=== PATIENT | male | born 1945 | race Caucasian/White ===

== ENCOUNTER 2024-11-30 20:30 | Emergency (ER) | payer OTHER ==
[~2024-11-30] VITALS: Ht 175.3 cm; Wt 98.0 kg
[2024-11-30 20:46] VITALS: TEMP 98
[2024-11-30] MEDS ORDERED: AMLO10TA PO (20:49)
--- NOTE | 2024-11-30 20:54 | Physician Documentation ---
History of Present Illness ~ Chief Complaint: Hypertension Stated Complaint: HIGH BP Time Seen by MD: 21:34 HPI 79-year-old male with history of hypertension takes amlodipine 10 mg daily was recently evaluated at his primary care provider's office at the OR when they noted that his blood pressure was elevated in the 160 systolic. His blood pressure cuff that he normally uses to assess his blood pressure at home is almost 20 years old they gave him a new blood pressure cuff in which case he has been checking it twice a day for with his systolic blood pressure being in the 200s twice prior to calling EMS. It was also elevated with EMS 1 time being 160 and the next being in the 120 systolic. Patient is asymptomatic denies dizziness chest pain or shortness of breath. Patient is hesitant to take more medications for blood pressure does not have a follow up appointment at the OR. Medication Reconciliation Allergies: Coded Allergies: No Known Allergies (Unverified , 11/30/24) Scheduled Amlodipine Besylate (Amlodipine Besylate), 1 TABLET PO DAILY, (Reported) Review of Systems All Other Systems at this time: Reviewed and Negative Constitutional: Reports: see HPI Physical Exam Vital Signs: RN Vital Signs have been reviewed: Yes, Temperature: 98.0, Source: Temporal, Heart Rate: 87, Respiratory Rate: 18, BP: 167/92, Pulse Oximetry: 95 Oxygen Flow Rate: 0 General Appearance: alert, WD/WN, no apparent distress Respiratory: lungs clear, normal breath sounds, no respiratory distress Chest: no accessory muscle use, chest non-tender Cardiovascular: normal peripheral pulses, regular rate, rhythm, no edema, no JVD Progress Results/Orders Results/Orders Completed Orders - LUZ MARINA BORDEN NP Hydrochlorothiazide Tablet (Hydrochlorot (11/30/24 21:35) Vital Signs 11/30/24 11/30/24 20:43 20:46 Temp 98.0 98.0 Pulse 93 87 Resp 14 18 B/P (MAP) 177/89 167/92 (117) Pulse Ox 98 95 O2 Flow Rate 0 0 Medical Decision Making Findings Patient is working with a new blood pressure cuff and will does have history of hypertension. [facility] No follow-up appointment. Patient is currently asymptomatic and does receive routine care. Differential Dx:Considerations: Include HTN, essential Departure Disposition: 01 HOME / SELF CARE / HOMELESS Impression: Primary Impression: Benign hypertension Condition: Stable Discharge Instructions: Hypertension, Adult, [id number] Additional Instructions: Continue to take blood pressures in the morning at night make sure to take blood pressure before you take your medications for hypertension which will now include hydrochlorothiazide along with your amlodipine. You can take these medications together. Her blood pressure medication that was prescribed tonight, hydrochlorothiazide if blood pressure is below 110 systolic. Call to make a [facility] readings. Referrals: NO PRIMARY CARE PROVIDER (PCP) Prescriptions Hydrochlorothiazide (Hydrochlorothiazide) 25 Mg Tab 1 TAB PO DAILY for 30 Days, #30 TAB 0 Refills Prov: LUZ MARINA BORDEN NP 11/30/24 Education Educated: Patient Educated regarding: diagnosis, treatment, need for follow up Signature Scribe Signature: The note accurately reflects work and decisions made by me.Luz Marina ANAYA 11/30/24 21:43 Attestation: The note accurately reflects work and decisions made by me.Luz Marina ANAYA 11/30/24 21:43 LUZ MARINA BORDEN NP Nov 30, 2024 20:54
[2024-11-30] MEDS: HYDROchlorothiazide 25mg tablet PO ONE (21:40)
[2024-11-30] MEDS ORDERED: HYDR25TA5 PO (21:42)
[2024-11-30 21:54] VITALS: BP 160/59; PULSE 89; RESP 16; O2SAT 98
== END 2024-11-30 21:56 | disposition home or self-care (01) ==
LOC: ER 20:31
DX: I10 Essential (primary) hypertension (principal); Z79.899 Other long term (current) drug therapy
CPT/HCPCS: 99283